=== PATIENT | female | born 2000 | race Caucasian/White ===

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

== ENCOUNTER 2022-01-27 12:59 | Emergency (ER) | payer OTHER, SELFPAY ==
--- NOTE | ~2022-01-27 | CT_ITS ---
EXAMINATION: CT ABDOMEN AND PELVIS WITH CONTRAST CLINICAL INFORMATION: Right flank pain. Rule out appendicitis. COMPARISON: None TECHNIQUE: Multidetector volumetric images were obtained from the superior aspect of the liver through the pubic symphysis following administration 85 mL of Omnipaque 350 intravenous contrast. Sagittal and coronal reformatted images were obtained on the technologist's workstation. Oral contrast: No This CT examination was performed using dose optimization techniques as appropriate, variously including the following: *Automated exposure control *Adjustment of mA and/or kV according to patient size (this includes techniques or standardized protocols for targeted exams where dose is matched to indication/reason for exam; i.e. extremities or head) *Use of iterative reconstruction technique DLP: 365 mGy-cm FINDINGS: LUNG BASES: The visualized lung bases are unremarkable. LIVER, GALLBLADDER, AND BILIARY TREE: The liver is normal in size, shape, and attenuation. No focal hepatic lesion or biliary ductal dilatation is present. The gallbladder is unremarkable with no evidence of radiopaque gallstones, gallbladder wall thickening, or obvious pericholecystic inflammatory changes. PANCREAS: Unremarkable. SPLEEN: Unremarkable. ADRENAL GLANDS: Unremarkable. KIDNEYS AND URETERS: The kidneys are normal in size, shape, and attenuation. There are focal areas of hypodensity in the left upper pole, left lower pole and moderate hypodensity in the right lower pole corticomedullary junction suggestive of pyelonephritis.. No hydronephrosis, hydroureter, or calculi seen. No perinephric stranding. BLADDER: Unremarkable. GASTROINTESTINAL TRACT: The small and large bowel are unremarkable. The appendix is nonvisualized. No inflammatory process seen in the right lower quadrant. ABDOMINAL WALL: No significant hernia is appreciated. LYMPH NODES: Normal. VASCULAR: Unremarkable. PELVIC VISCERA: The uterus is anteverted and appears unremarkable. No free air or free fluid seen. OSSEOUS STRUCTURES: Unremarkable. CT/CT abdomen pelvis w con IMPRESSION: Bilateral hypodense nonenhancing areas in the peripelvic regions of both kidneys most prominent in lower pole right kidney suspicious for pyelonephritis. Correlate if patient has UTI. No radiopaque calculi or hydronephrosis seen. No inflammatory process seen in the right lower quadrant. Appendix is not seen either. Fleischner guidelines were followed.
[2022-01-27 14:09] VITALS: BP 115/51; PULSE 108; RESP 18; TEMP 37.1; O2SAT 99; BMI 19.8
[2022-01-27 14:33] LABS: Eosinophils Absolute Auto 0.2 X10*3/uL (0.0-0.4); Eosinophils Percent Auto 2.4 % (0-4); PLT CLUMP 1; SCAN SMEAR FLAG 1
[2022-01-27 14:34] LABS: Basophils Percent Auto 0.4 % (0-2); Hematocrit 37.2 % (37.0-47.0); Imm Gran Abs Auto 0.03 X10*3/uL (0.00-0.03); Imm Gran Pct Auto 0.3 % (0.0-0.4); Lymphocytes Percent Auto 20.2 % (20-40); MANUAL DIFF FLAG SCAN; Mean Corpuscular HGB Conc 32.3 g/dl (31.0-35.0); Mean Corpuscular Hemoglobin 28.8 pg (27.0-33.0); Mean Corpuscular Volume 89.4 fL (80.0-98.0); Mean Platelet Volume 12.5 fL (9.4-12.3); Monocytes Absolute Auto 1.1 X10*3/uL (0.1-1.2); Monocytes Percent Auto 11.3 % (2-11); Neutrophils Absolute Auto 6.4 x10*3/uL (2.0-8.3); Neutrophils Percent Auto 65.4 % (45-73); Red Blood Count 4.16 X10*6/uL (4.20-5.50); Red Cell Distribution Width 12.5 % (11.0-16.0)
[2022-01-27 15:01] LABS: Platelet Count 162 X10*3/uL (160-400); White Blood Count 9.7 X10*3/uL (4.8-10.8)
[2022-01-27 15:03] LABS: SLIDE REVIEW VERIFIED
[2022-01-27 15:51] LABS: Alanine Aminotransferase 8 U/L (0-31); Albumin Level 4.5 g/dL (3.5-5.0); Alkaline Phosphatase 42 U/L (39-117); Anion Gap 14 (12-20); Aspartate Amino Transferase 16 U/L (5-31); Bilirubin Total 0.9 mg/dL (0.0-1.0); Blood Urea Nitrogen 8 mg/dL (9-16); Calcium 9.3 mg/dL (8.4-10.2); Carbon Dioxide 23 mmol/L (22-29); Chloride 107 mmol/L (96-108); Creatinine Clr Calc Pharmacy 94.2; Estimated Glomerular Filt Rate > 60; Glucose Random 87 mg/dL (60-115); Potassium 3.9 mmol/L (3.3-5.1); Sodium 140 mmol/L (135-145); Total Protein 7.8 g/dL (6.5-8.0)
[2022-01-27] MEDS: Ibuprofen 600 MG TABLET PO (16:29)
[2022-01-27 18:23] LABS: Appearance Urine HAZY; Color Urine YELLOW; Glucose Urine UA NEG (NEG); Leukocyte Esterase Urine TRACE (NEG); Nitrite Urine NEG (NEG); PH 7.5 (5.0-8.0); Specific Gravity - Urine 1.015 (1.005-1.025); UACC Culture Trigger NO; Urine Blood 3+ (NEG); Urine Ketones NEG (NEG); Urine Protein 2+ MG/DL (NEG-TRACE)
[2022-01-27 18:25] LABS: UPreg QC Valid YES; Urine Pregnancy NEGATIVE (NEGATIVE)
[2022-01-27 18:36] LABS: Bacteria Urine 1+ /LPF; WBC Urine 0-2 /HPF (0-4)
[2022-01-27 18:37] LABS: Squamous Epithelial Cell Urine 2+ /LPF
[2022-01-27 20:46] VITALS: BP 117/64; PULSE 79; RESP 18; TEMP 36.9; O2SAT 99
[2022-01-27 21:31] LABS: Lipase 13 U/L (8-78)
[2022-01-27] MEDS: Ketorolac Tromethamine 15 MG/ML VIAL IVPUSH (21:31)
[2022-01-27] MEDS: ondansetron HCL 4 MG/2 ML VIAL IVPUSH (21:31)
[2022-01-27] MEDS: 0.9 % Sodium Chloride 1,000 ML 999 ML IV (21:31)
[2022-01-27] MEDS: iohexoL 350 MG/ML 100 ML INFUS..BTL IV (21:53)
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
[2022-01-27] MEDS: Phenazopyridine HCL 100 MG TABLET PO (23:04)
[2022-01-27] MEDS: cephALEXin 500 MG CAPSULE PO (23:04)
== END 2022-01-27 23:26 | disposition home or self-care (01) ==
PROVIDERS: Emergency Provider Emergency Medicine Emergency Medical Services
DX: N12 Tubulo-interstitial nephritis, not specified as acute or chronic (principal); M54.50 Low back pain, unspecified; R10.31 Right lower quadrant pain; F12.90 Cannabis use, unspecified, uncomplicated
CPT/HCPCS: 36415; 74177; 80053; 81001; 81025; 83690; 85025; 96361; 96374; 96375; 99284; 99285; J1885; J2405; Q9967

== ENCOUNTER 2022-01-29 20:49 | Emergency (ER) | payer OTHER, SELFPAY ==
--- NOTE | ~2022-01-29 | CT_ITS ---
EXAMINATION: CT ABDOMEN AND PELVIS WITH CONTRAST CLINICAL INFORMATION: Right chest, flank and lower abdominal pain COMPARISON: 01/27/2022 TECHNIQUE: Multidetector volumetric images were obtained from the superior aspect of the liver through the pubic symphysis following administration 85 mL of Omnipaque 350 intravenous contrast. Sagittal and coronal reformatted images were obtained on the technologist's workstation. Oral contrast: No This CT examination was performed using dose optimization techniques as appropriate, variously including the following: *Automated exposure control *Adjustment of mA and/or kV according to patient size (this includes techniques or standardized protocols for targeted exams where dose is matched to indication/reason for exam; i.e. extremities or head) *Use of iterative reconstruction technique DLP: 324 mGy-cm FINDINGS: LUNG BASES: The visualized lung bases are unremarkable. LIVER, GALLBLADDER, AND BILIARY TREE: The liver is normal in size, shape, and attenuation. No focal hepatic lesion or biliary ductal dilatation is present. Gallbladder unremarkable. PANCREAS: Unremarkable. SPLEEN: Unremarkable. ADRENAL GLANDS: Unremarkable. KIDNEYS AND URETERS: Again seen is an ill-defined regions of hypodensity within the mid and lower poles of the right kidney, suggestive of focal pyelonephritis. There is subtle hypodensity upper pole left kidney which may represent an additional area of focal pyelonephritis versus normal contrast related cortical medullary differentiation. No evidence of abscess formation. Ureters normal in course and caliber. BLADDER: Bladder is mildly thick walled and shows mucosal hyperemia suggestive of cystitis. GASTROINTESTINAL TRACT: The small and large bowel are unremarkable. The appendix is unremarkable. ABDOMINAL WALL: No significant hernia is appreciated. LYMPH NODES: Normal. VASCULAR: Unremarkable. PELVIC VISCERA: Unremarkable. OSSEOUS STRUCTURES: Unremarkable. CT/CT abdomen pelvis w con IMPRESSION: * Again seen are findings suggestive of focal pyelonephritis/lobar nephronia involving the mid and lower poles of the right kidney appearing slightly less conspicuous on the previous exam. * No evidence of abscess formation. * Cystitis suspected as well.
[2022-01-29 21:01] VITALS: BP 116/74; BP 129/79; PULSE 84; PULSE 86; RESP 18; TEMP 36.4; O2SAT 96; O2SAT 99; BMI 19.5
[2022-01-29 21:07] VITALS: BP 129/79; PULSE 86; RESP 18; TEMP 36.4; O2SAT 99
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
--- NOTE | 2022-01-29 21:08 | ECG_ITS ---
Test Reason : ABDOMINAL PAIN Blood Pressure : / mmHG Vent. Rate : 057 BPM Atrial Rate : 057 BPM P-R Int : 128 ms QRS Dur : 080 ms QT Int : 402 ms P-R-T Axes : 051 083 053 degrees QTc Int : 391 ms Sinus bradycardia Otherwise normal ECG When compared with ECG of 07-JAN-2021 23:07, No significant change was found Referred By: Max Roman Electronically Signed By:BELTRAN FONTANA
[2022-01-29] MEDS: Ketorolac Tromethamine 15 MG/ML VIAL IVPUSH (21:19)
[2022-01-29] MEDS: ondansetron HCL 4 MG/2 ML VIAL IVPUSH (21:19)
[2022-01-29] MEDS: 0.9 % Sodium Chloride 1,000 ML 999 ML IV (21:19)
[2022-01-29 21:49] LABS: MANUAL DIFF FLAG NO
[2022-01-29 21:50] LABS: Basophils Percent Auto 0.7 % (0-2); Eosinophils Absolute Auto 0.4 X10*3/uL (0.0-0.4); Eosinophils Percent Auto 6.6 % (0-4); Hematocrit 30.4 % (37.0-47.0); Imm Gran Abs Auto 0.01 X10*3/uL (0.00-0.03); Imm Gran Pct Auto 0.2 % (0.0-0.4); Lymphocytes Absolute Auto 1.7 X10*3/uL (1.2-4.9); Lymphocytes Percent Auto 31.6 % (20-40); Mean Corpuscular HGB Conc 32.9 g/dl (31.0-35.0); Mean Corpuscular Hemoglobin 29.5 pg (27.0-33.0); Mean Corpuscular Volume 89.7 fL (80.0-98.0); Mean Platelet Volume 11.4 fL (9.4-12.3); Monocytes Absolute Auto 0.6 X10*3/uL (0.1-1.2); Monocytes Percent Auto 11.5 % (2-11); Neutrophils Absolute Auto 2.7 x10*3/uL (2.0-8.3); Neutrophils Percent Auto 49.4 % (45-73); Platelet Count 201 X10*3/uL (160-400); Red Blood Count 3.39 X10*6/uL (4.20-5.50); Red Cell Distribution Width 12.2 % (11.0-16.0); White Blood Count 5.5 X10*3/uL (4.8-10.8)
[2022-01-29 21:59] LABS: INTERNATIONAL NORM RATIO 1.2 (0.9-1.1); Prothrombin Time 13.3 SEC (10.0-13.1)
[2022-01-29 22:02] LABS: Partial Thromboplastin Time 31.9 SEC (26.0-36.4)
[2022-01-29 22:06] LABS: D Dimer High Sensitivity < 150 NG/ML
[2022-01-29 22:09] LABS: Lactic Acid 0.9 mmol/L (0.5-2.0)
[2022-01-29 22:19] LABS: Troponin-I High Sensitivity < 3.5 ng/L (<3.5-17.0)
[2022-01-29 22:24] LABS: Erythrocyte Sedimentation Rate 34 MM/HR (0-20)
[2022-01-29 22:52] LABS: Alanine Aminotransferase 6 U/L (0-31); Albumin Level 3.6 g/dL (3.5-5.0); Alkaline Phosphatase 33 U/L (39-117); Anion Gap 10 (12-20); Aspartate Amino Transferase 11 U/L (5-31); Bilirubin Total 0.3 mg/dL (0.0-1.0); Blood Urea Nitrogen 6 mg/dL (9-16); C Reactive Protein 5.49 mg/dL (< or = 0.50); Calcium 7.9 mg/dL (8.4-10.2); Carbon Dioxide 23 mmol/L (22-29); Chloride 110 mmol/L (96-108); Estimated Glomerular Filt Rate > 60; Glucose Random 91 mg/dL (60-115); Lipase 15 U/L (8-78); Potassium 3.9 mmol/L (3.3-5.1); Sodium 139 mmol/L (135-145); Total Protein 6.1 g/dL (6.5-8.0)
[2022-01-29] MEDS: Diatrizoate Meglumine, Sodium 30 ML SOLUTION PO (23:51)
[2022-01-29] MEDS: iohexoL 350 MG/ML 100 ML INFUS..BTL 85 ML IV (23:52)
[2022-01-29 23:58] VITALS: BP 127/65; PULSE 55; RESP 16; O2SAT 97
[2022-01-30 00:11] LABS: Appearance Urine CLEAR; Color Urine DK YELLOW; Glucose Urine UA 100 MG/DL (NEG); Leukocyte Esterase Urine TRACE (NEG); Nitrite Urine POS (NEG); Specific Gravity - Urine <= 1.005 (1.005-1.025); UACC Culture Trigger YES; Urine Blood TRACE (NEG); Urine Ketones NEG (NEG); Urine Protein TRACE MG/DL (NEG-TRACE)
[2022-01-30 00:13] LABS: UPreg QC Valid YES; Urine Pregnancy NEGATIVE (NEGATIVE)
[2022-01-30] MEDS: Lactated Ringers 1,000 ML 125 ML IV (00:13)
[2022-01-30 00:53] LABS: Bacteria Urine TRACE /LPF; RBC Urine 0-2 /HPF (0); Squamous Epithelial Cell Urine TRACE /LPF; WBC Clumps Urine NOTED
[2022-01-30] MEDS: Ketorolac Tromethamine 15 MG/ML VIAL IVPUSH (02:00)
[2022-01-30] MEDS: ondansetron HCL 4 MG/2 ML VIAL IVPUSH (02:00)
== END 2022-01-30 02:15 | disposition home or self-care (01) ==
PROVIDERS: Emergency Provider Emergency Medicine Emergency Medical Services
DX: N12 Tubulo-interstitial nephritis, not specified as acute or chronic (principal); N23 Unspecified renal colic; R50.9 Fever, unspecified; R07.89 Other chest pain; M54.50 Low back pain, unspecified; Z79.899 Other long term (current) drug therapy
CPT/HCPCS: 36415; 74177; 80053; 81001; 81025; 83605; 83690; 84484; 85025; 85379; 85610; 85652; 85730; 86140; 87086; 93005; 96361; 96374; 96375; 96376; 99285; J1885; J2405; Q9967